=== PATIENT | male | born 1970 | race Caucasian/White ===

== ENCOUNTER 2017-05-18 02:25 | Emergency (ER) | payer OTHER | END 2017-05-18 04:26 | disposition home or self-care (01) | LOC: FTE 02:25 | DX: Z76.0 Encounter for issue of repeat prescription (principal); J45.909 Unspecified asthma, uncomplicated; F17.210 Nicotine dependence, cigarettes, uncomplicated | CPT/HCPCS: 99281; Z7502 ==

== ENCOUNTER 2017-05-20 22:05 | Emergency (ER) | payer SELFPAY, OTHER | END 2017-05-21 03:12 | disposition left against medical advice (07) | LOC: FTE 22:05 | DX: Z53.21 Procedure and treatment not carried out due to patient leaving prior to being seen by health care provider (principal) ==

== ENCOUNTER 2017-11-18 23:24 | Emergency (ER) | payer OTHER | END 2017-11-19 00:12 | disposition left against medical advice (07) | LOC: E/R 23:24 | DX: F41.9 Anxiety disorder, unspecified (principal); J45.909 Unspecified asthma, uncomplicated; Z87.891 Personal history of nicotine dependence | CPT/HCPCS: 99283; Z7502 ==